=== PATIENT | female | born 1970 | race Two or more races ===

== ENCOUNTER → 2017-02-17 | Outpatient (CLI) | payer OTHER ==
--- NOTE | ~2017-02-17 | ST ---
Unit #: [id number] #: [id number] Patient: DENA MANUEL [id number] [address] [address] [id number] O MR#: [id number] NAME: DENA MANUEL : 1970 SEX: F STUDY DATE/TIME: 02/17/2017 UNIT: CEKG ROOM: STUDY DESCRIPTION: Stress test Attending Physician: Roxane Olea A.P.R.N. Referring Physician: Roxane Olea A.P.R.N. Primary Care Physician: Roxane Olea A.P.R.N. CARDIOLOGY REPORT PROCEDURE PERFORMED Stress test. FINDINGS Baseline EKG - normal sinus rhythm, nonspecific ST changes. Resting heart rate 80 per minute. Blood pressure 155/85. This 46-year-old patient was exercised on the Barber protocol for 6 minutes, achieving a heart rate of 170 per minute. Peak blood pressure 220/92. Maximum workload attained was 7 METS. Exercise was terminated because of fatigue. No ischemic changes noted. Occasional PVCs noted. Blood pressure response was normal. INTERPRETATION 1. Negative exercise stress test for ischemia. 2. Occasional PVCs noted. 3. Normal blood pressure response to exercise. Dictated by... Anushka Gonzalez/ilda TD: 02/17/2017 13:59 JOB #: [id number] CARDIOLOGY REPORT Page 1 of 1 X Neida Wellington MD CARDIOLOGY REPORT
== END | disposition home or self-care (01) ==
LOC: CEKG 09:43
DX: I51.5 Myocardial degeneration (principal); I49.3 Ventricular premature depolarization
CPT/HCPCS: 93017